=== PATIENT | female | born 1950 | race Caucasian/White ===

== ENCOUNTER → 2017-09-11 | Day surgery (SDC) | payer MEDICARE ==
[2017-09-10 15:28] VITALS: BMI 44.9
--- NOTE | 2017-09-11 12:08 | OP ---
DATE OF PROCEDURE: 09/11/2017 PROCEDURE PERFORMED: Colonoscopy with polypectomy. INDICATION FOR PROCEDURE: Screening for malignant neoplasm of the colon, positive Cologuard. DESCRIPTION OF PROCEDURE: After the risks and benefits were explained to the patient including risks of bleeding, infection, perforation, reaction to anesthesia and/or pain, informed consent was obtained. The patient was then taken to the endoscopy suite where deep sedation was administered via propofol and anesthesia support. The standard colonoscope was then introduced into the rectum with intubation of the entire colon to the cecum achieved. The quality of the prep was poor with large amount of both solid and liquid stool limiting visualization of the colonic mucosa, but adequate enough for the evaluation of large/gross lesions. The patient tolerated the procedure well with no periprocedural complications. The findings of the procedure listed below. Rectal Examination: Normal. Colon: A large amount of both solid and liquid stool was seen throughout the entire colon significantly limiting visualization of the colonic mucosa, more significantly in the right colon than the left. The prep was adequate for the evaluation of large/gross lesions, but inadequate for the evaluation of any fine mucosal lesions or lesions less than 5 mm in size. Of the mucosa seen, normal appearing mucosa was seen at the ileocecal valve, cecum and ascending colon. Two polyps measuring 4-5 mm in size were seen in the transverse colon and completely removed with cold snare polypectomy. They were retrieved and placed in a specimen jar for evaluation. Normal appearing mucosa was seen in the descending colon. Two additional polyps measuring 3-4 mm in size were seen in the sigmoid colon and completely removed with cold snare polypectomy. They were both retrieved and placed in a different specimen jar for evaluation. Normal appearing mucosa was seen in the rectum and normal findings were seen on rectal retroflexion. IMPRESSION: 1. Significant amount of both solid and liquid stool seen throughout the colon making evaluation for fine mucosal lesions impossible. 2. Two 5-6 mm polyps seen in the transverse colon and completely removed with cold snare polypectomy. 3. Two 3-4 mm polyps seen in the sigmoid colon and completely removed with cold snare polypectomy. RECOMMENDATIONS: 1. We will follow up on biopsy results. 2. We would repeat colonoscopy in 3-6 months due to poor visualization of the colonic mucosa on examination today. 3. Recommend follow up in the GI clinic in 2-3 weeks for reevaluation of constipation. 4. We would continue higher fiber diet as recommended in the prior GI clinic visit. MTDD
== END ==
LOC: SDC 08:13
PROVIDERS: ATTEND Internal Medicine
PROC: 0DBN8ZX Excision of Sigmoid Colon, Via Natural or Artificial Opening Endoscopic, Diagnostic (ICD-10-PCS; principal; 2017-09-11)
PROC: 0DBL8ZX Excision of Transverse Colon, Via Natural or Artificial Opening Endoscopic, Diagnostic (ICD-10-PCS; 2017-09-11)
DX: K63.5 Polyp of colon (principal); R19.5 Other fecal abnormalities; Z79.899 Other long term (current) drug therapy; Z79.82 Long term (current) use of aspirin; Z98.890 Other specified postprocedural states; Z98.1 Arthrodesis status; Z15.09 Genetic susceptibility to other malignant neoplasm
CPT/HCPCS: 88305

== ENCOUNTER 2018-01-27 13:49 | Outpatient (CLI) | payer MEDICARE ==
--- NOTE | 2018-01-27 15:12 | RAD ---
FOUR VIEWS LEFT KNEE: Date: 01-27-18 Comparison: None. History: Pain. FINDINGS: There is moderate degenerative change of the medial compartment with joint space narrowing, subchondr al sclerosis and osteophyte formation. There is mild lateral compartment joint space narrowing with a ssociated osteophyte formation of the lateral tibial plateau and lateral femoral condyle. There is mo derate patellofemoral joint space narrowing with subchondral sclerosis and osteophyte formation. No k nee joint effusion, acute fracture, or evidence of dislocation. There is enthesophyte formation at th e insertion of the quadriceps tendon. IMPRESSION: Prominent multi compartment degenerative joint disease. No acute osseous abnormality. POS: [facility]
== END 2018-01-27 13:50 | disposition home or self-care (01) ==
LOC: RAD-FRANK 13:49
PROVIDERS: ATTEND Nurse Practitioner Family
DX: M17.12 Unilateral primary osteoarthritis, left knee (principal)

== ENCOUNTER 2018-03-07 08:23 | Outpatient (CLI) | payer MEDICARE ==
[2018-03-07 09:24] LABS: #Basophils 0.1 thou/uL (0.0-0.2); #Eosinphils 0.1 thou/uL (0.0-0.7); #Lymphocytes 3.3 thou/uL (1.20-3.40); #Monocytes 0.7 thou/uL (0.11-0.59); #Neutrophils 5.5 thou/uL (1.40-6.50); %Basophils 1.2 % (0.0-1.0); %Eosinophils 1.4 % (0.0-10.0); %Lymphocytes 33.8 % (21.0-51.0); %Monocytes 7.1 % (0.0-10.0); %Neutrophils 56.6 % (42.0-75.0); Hemoglobin 15.2 g/dL (12.0-16.0); Mean Corpuscular HGB CONC 33.7 g/dL (32.0-36.0); Mean Corpuscular Hemoglobin 34.1 pg (27.0-31.0); Mean Platelet Volume 6.7 fL (7.4-10.4); Platelet Count 371 thou/uL (130-400); RBC Distribution Width 11.5 % (11.5-14.5); Red Blood Cell (RBC) Count 4.46 mill/uL (4.20-5.40); White Blood Cell (WBC) Count 9.7 thou/uL (4.8-10.8)
[2018-03-07 09:25] LABS: Bilirubin Negative (Negative); Blood, Urine Negative (Negative); Clarity CLOUDY (Clear); Glucose, Urine (Dipstick) Negative (Negative); Leukocyte Moderate (Negative); Nitrite Negative (Negative); Protein, Urine (Dipstick) Negative (Neg-Trace); Specific Gravity, Urine 1.022 (1.002-1.036)
[2018-03-07 09:27] LABS: Pathc Cast-AUWi Flag 0.87 (0-2.49)
[2018-03-07 09:33] LABS: Prothrombin Time 12.9 SEC (12.0-14.7)
[2018-03-07 09:40] LABS: Bacteria/HPF 1+ HPF (None Seen); Hyaline Casts/LPF 0-3 HYALINE CAST LPF (0-3 Hyaline); RBC/HPF 0-3 HPF (0-3)
[2018-03-07 09:42] LABS: Anion Gap 14 mmol/L (10-20); BUN (Urea Nitrogen) 16 mg/dL (9.8-20.1); Calc. Creatinine Clearance 0 mL/min (70-130); Carbon Dioxide 27 mmol/L (23-31); Chloride 102 mmol/L (98-107); Estimated GFR-MDRD 72; Glucose 98 mg/dL (80-115); Potassium 3.7 mmol/L (3.5-5.1); Sodium 139 mmol/L (136-145)
--- NOTE | 2018-03-07 10:08 | RAD ---
CHEST 2 VIEWS: HISTORY: Preop. COMPARISON: None. FINDINGS: Lungs are clear. No pneumothorax or effusion. Cardiac silhouette and mediastinal contours within no rmal limits. No acute osseous abnormality. Incomplete evaluation of the lumbar fusion hardware. IMPRESSION: No acute intrathoracic abnormality. POS: [facility]
--- NOTE | 2018-03-16 14:01 | EKG ---
Test Reason : Blood Pressure : / mmHG Vent. Rate : 047 BPM Atrial Rate : 047 BPM P-R Int : 166 ms QRS Dur : 088 ms QT Int : 470 ms P-R-T Axes : -03 050 013 degrees QTc Int : 415 ms Marked sinus bradycardia with Premature atrial complexes Low voltage QRS Cannot rule out Anterior infarct (cited on or before 01-JUN-2016) Abnormal ECG When compared with ECG of 01-JUN-2016 13:54, Premature atrial complexes are now Present Confirmed by GERBER TOLBERT (2) on 03/16/2018 2:01:23 PM Referred By: PINEDA Confirmed By:GERBER TOLBERT
== END 2018-03-07 08:24 | disposition home or self-care (01) ==
LOC: LABBT 08:23
PROVIDERS: ATTEND Orthopaedic Surgery
DX: Z01.818 Encounter for other preprocedural examination (principal); M17.12 Unilateral primary osteoarthritis, left knee
CPT/HCPCS: 71046; 80048; 81001; 85025; 85610; 86850; 86900; 86901; 87081; 93005; 93010

== ENCOUNTER 2018-03-11 05:31 | Inpatient (IN) | payer MEDICARE ==
[2018-02-27 13:22] VITALS: BMI 42.3
[2018-03-11] MEDS ORDERED: CEFAZOLIN/Water 2 GM/20 ML SYRINGE ONE (05:57)
[2018-03-11] MEDS ORDERED: Sodium Chloride 0.9% 100 ML ONE (05:57)
[2018-03-11] MEDS ORDERED: Vancomycin HCl 1.5 GM in Sodium Chloride 0.9% 250 ML 300 ML IVPB SCH (06:00)
[2018-03-11] MEDS ORDERED: Fentanyl 100 MCG/2 ML VIAL ONE ×2 (06:23→08:50)
[2018-03-11] MEDS ORDERED: Midazolam HCl 2 mg/2 ml Vial ONE (06:23)
[2018-03-11] MEDS ORDERED: Promethazine HCl 25 MG/ML VIAL IM PRN ×3 (06:57→08:47)
[2018-03-11] MEDS ORDERED: traMADol HCl 50 MG TAB PO PRN ×3 (06:57→07:07)
[2018-03-11] MEDS ORDERED: Acetaminophen 325 MG TAB PO PRN (06:57)
[2018-03-11] MEDS ORDERED: Zolpidem Tartrate 5 MG TAB PO PRN ×2 (06:57→07:07)
[2018-03-11] MEDS ORDERED: HYDROcodone/Acetaminophen 10/325 mg Tablet PO PRN (06:57)
[2018-03-11] MEDS ORDERED: diphenhydrAMINE 25 MG CAP PO PRN (06:57)
[2018-03-11] MEDS ORDERED: Fentanyl 100 MCG/2 ML VIAL SLOW IVP PRN ×2 (06:57)
[2018-03-11] MEDS ORDERED: Ondansetron HCl/PF 4 MG/2 ML Vial IVP PRN ×3 (06:57→08:47)
[2018-03-11] MEDS ORDERED: Nitroglycerin 0.4 MG TAB (25 Tab Bottle) SL PRN (06:59)
[2018-03-11] MEDS ORDERED: Ropivacaine HCl/PF 250 ML in Premix Bag 1 BAG NERVE BLCK SCH (07:07)
[2018-03-11] MEDS ORDERED: Ketorolac Tromethamine 30 MG/ML VIAL IVP PRN (07:07)
[2018-03-11] MEDS ORDERED: Fentanyl 100 MCG/2 ML VIAL IV PRN (07:08)
[2018-03-11] MEDS ORDERED: HYDROcodone/Acetaminophen 7.5/325 mg Tablet PO PRN ×2 (07:09)
[2018-03-11] MEDS ORDERED: Promethazine HCl 25 MG/ML VIAL SLOW IVP PRN (08:47)
[2018-03-11] MEDS ORDERED: Acetaminophen 1,000 MG in Premix Bag 1 BAG IVPB SCH (09:30)
[2018-03-11] MEDS: HYDROcodone/Acetaminophen 10/325 mg Tablet PO PRN ×2 (11:21→16:54)
[2018-03-11] MEDS: Sodium Chloride 0.9% 1,000 ML IV SCH ×2 (11:27→15:48)
[2018-03-11] MEDS: Aspirin 81 mg Enteric Coated Tablet PO SCH ×2 (11:39→20:46)
[2018-03-11] MEDS: Torsemide 20 MG TAB PO SCH (11:40)
[2018-03-11] MEDS: Folic Acid 1 MG TAB PO SCH (11:40)
[2018-03-11] MEDS: Ferrous Gluconate 324 MG TAB PO SCH ×2 (11:40→20:46)
[2018-03-11] MEDS: Spironolactone 25 MG TAB PO SCH ×2 (11:40→20:45)
[2018-03-11] MEDS: Atorvastatin Calcium 40 MG TAB PO SCH (11:40)
[2018-03-11] MEDS: Senokot S 8.6-50 MG TAB PO SCH ×2 (11:40→20:51)
[2018-03-11] MEDS: Multivitamin W/ Minerals 1 TAB PO SCH (11:40)
[2018-03-11] MEDS ORDERED: Bupivacaine 0.25% HCL 30 ML VIAL ONE (12:32)
[2018-03-11] MEDS ORDERED: Ropivacaine 0.5% HCl/PF (150 MG/30 ML VIAL) ONE (12:33)
--- NOTE | 2018-03-11 12:55 | OP ---
DATE OF PROCEDURE: 03/11/2018 PREOPERATIVE DIAGNOSIS: End-stage tricompartmental osteoarthritis, left knee. POSTOPERATIVE DIAGNOSIS: End-stage tricompartmental osteoarthritis, left knee. OPERATIVE PROCEDURE: Cemented cruciate-sparing computer-assisted navigated left total knee arthropla stjessica. SURGEON: Jay Hope M.D. BURNER TECHNICIAN: Martell Alex PA-C. ANESTHESIA: General via laryngeal mask airway augmented with indwelling adductor canal block with a single shot sciatic block. COMPONENTS USED: [employer] Triathlon primary cemented, size 4 cruciate-sparing femoral com ponent with a cemented primary size 3 Triathlon tibial baseplate with a 9 mm polyethylene fixed beari ng insert and A29 patellar button. TOURNIQUET TIME: 54 minutes. ESTIMATED BLOOD LOSS: Less than 100. INPUT: 800 mL crystalloid. URINE OUTPUT: Scant. DRAINS: None. SPECIMENS: None. COMPLICATIONS: None. COUNTS: Correct. INDICATIONS FOR SURGERY: Marianela is a 68-year-old white female who has had progressive left knee pain amplified with standing and walking for the last 10-12 years. She has failed conservative management and elected to proceed with total knee arthroplasty as definitive treatment of her pain. PROCEDURE IN DETAIL: After informed consent was obtained in the preoperative holding area. The polo ent was taken to the operative suite where general anesthesia was induced. Once adequate level of ge neral anesthesia was obtained, the patient was positioned and a well-padded tourniquet was placed lebron und the left proximal thigh. The left lower extremity was then prepped and draped in the usual steri le fashion. Prior to exsanguination, a time out was called and all members of the surgical team agre ed upon site, surgeon, and patient. The extremity was then exsanguinated and the tourniquet was rais ed. A midline longitudinal incision was then made directly over the patella extending two fingerbrea dths above the superior pole of the patella and two fingerbreadths inferior to the inferior patellar pole of the patella. Deeper subcutaneous layers were dissected sharply and local bleeding was contro lled with Bovie electrocautery. A quad tendon longitudinal split was then made sharply and a median parapatellar arthrotomy was carried out both sharp and with Bovie electrocautery, carried down to one fingerbreadth medial to the tibial tubercle. The knee was then placed into flexion and the patella was everted nicely, and a copious fat pad ectomy was performed allowing for greater exposure of the t ibia. The computer-assisted distal femoral fiducial was then placed and pinned firmly, and the dista l femoral cutting guide was pinned firmly into place. The oscillating saw was then used to remove th e appropriate amount of bone. The 4-in-1 cutting block was then placed on the distal femur and the o scillating saw was used to remove the appropriate amount of bone off of the anterior, posterior, and chamfer cuts. After completion of bone cuts, the anterior cruciate ligament was resected sharply and the posterior cruciate ligament retractor was placed and the tibia was subluxed for better exposure. Partial meniscectomies were carried out, and the tibial computer-assisted fiducial was pinned, and the cutting guide was placed. Oscillating saw was then used to remove the bone with Hohmann retracto rs used to take care and protect the collateral ligaments. After the tibial resection was performed, a laminar [employer] school combination teacher was placed in between the freshened bone cuts. The knee placed at 90 degrees and further bilateral meniscectomies were carried out, and the curved osteotome and curettage was used t o remove any excess bone spurs in the posterior compartment. The trial femoral component, tibial bas eplate were placed with the appropriate polyethylene trial insert with an appropriate polyethylene sp acer and patellar button. The knee was taken through full range of motion with flexion and extension from 0-90 degrees and patellar broach squarely in the trochlea without any squinting or subluxation noted. The knee was also stable to varus and valgus stressing at 0, 15, 45, and 90 degrees of flexi on. The drawer was negative. All trial components were then removed and the keel punch was used to p rovide the appropriate defect in the tibia with a mallet. The freshened bone cuts were copiously irr igated with pulsatile lavage of about 1-1/2 liters to remove all excess debris. The freshened bone c uts were then dried and with suction and lap sponge. The knee was placed in flexion and retractors w ere placed to provide access to all bone cuts. Tobramycin impregnated methyl methacrylate cement was then placed on the freshened bone cuts and implants which were malleted firmly into place. Curettag e and Reardan elevators were used to remove any excess bone cement. The knee was placed into full exte nsion and the patellar button was placed under compression, and the cement was allowed to cure. Once completed, the components were again taken through full range of motion and copious irrigation of th e knee was carried out with another liter of normal saline. All components were inspected fully with full range of motion and varus and valgus stressing. There was no laxity noted and full extension wa s observed clinically. Primary closure was accomplished with #2 interrupted Vicryl stitch of the art hrotomy defect. This was oversewn with a #2 running Quill barbed stitch. The subcutaneous layer was then closed with a running 0 barbed Monocryl stitch and skin closure accomplished with a running sub cuticular 3-0 Monocryl barbed Quill stitch and augmented with cement on the skin. Tourniquet was low ered. Good spontaneous return of distal pulses was noted clinically and a sterile dressing was appli ed to the incision. The procedure was terminated without any complications. The patient was awakene d in the operative suite and taken to the recovery room in stable condition.
--- NOTE | 2018-03-11 13:02 | RAD ---
LEFT KNEE TWO VIEWS: History: Arthritis. Left knee replacement. FINDINGS: Total knee prosthesis in place. No perihardware lucency. Intracapsular and soft tissue gas. IMPRESSION: Left knee prosthesis is in good radiographic position. POS: [facility]
[2018-03-11] MEDS ORDERED: PROPOFOL 200 MG/20 ML VIAL ONE (13:23)
[2018-03-11] MEDS ORDERED: Ondansetron HCl/PF 4 MG/2 ML Vial ONE (13:23)
[2018-03-11] MEDS ORDERED: Ketorolac Tromethamine 30 MG/ML VIAL ONE (13:23)
[2018-03-11] MEDS: CEFAZOLIN/Water 2 GM/20 ML SYRINGE SLOW IVP SCH ×2 (14:18→21:13)
[2018-03-11] MEDS: Ketorolac Tromethamine 30 MG/ML VIAL IVP SCH ×2 (14:21→21:05)
[2018-03-11] MEDS ORDERED: Sodium Chloride 0.9% 1,000 ML IV SCH (18:30)
[2018-03-12] MEDS: Ketorolac Tromethamine 30 MG/ML VIAL IVP SCH ×3 (05:20→21:13)
[2018-03-12] MEDS: Levothyroxine Sodium 125 MCG TAB PO SCH (05:22)
[2018-03-12 05:31] LABS: Hemoglobin 12.9 g/dL (12.0-16.0); Mean Corpuscular HGB CONC 32.3 g/dL (32.0-36.0); Mean Corpuscular Hemoglobin 33.2 pg (27.0-31.0); Mean Platelet Volume 6.5 fL (7.4-10.4); Platelet Count 288 thou/uL (130-400); RBC Distribution Width 11.5 % (11.5-14.5); Red Blood Cell (RBC) Count 3.89 mill/uL (4.20-5.40)
[2018-03-12] MEDS: Sodium Chloride 0.9% 1,000 ML IV SCH ×2 (05:31→20:24)
[2018-03-12] MEDS: Atorvastatin Calcium 40 MG TAB PO SCH (09:18)
[2018-03-12] MEDS: Aspirin 81 mg Enteric Coated Tablet PO SCH ×2 (09:18→20:23)
[2018-03-12] MEDS: Senokot S 8.6-50 MG TAB PO SCH ×2 (09:19→20:22)
[2018-03-12] MEDS: Multivitamin W/ Minerals 1 TAB PO SCH (09:19)
[2018-03-12] MEDS: Ferrous Gluconate 324 MG TAB PO SCH ×2 (09:19→20:23)
[2018-03-12] MEDS: Folic Acid 1 MG TAB PO SCH (09:20)
[2018-03-12] MEDS: Spironolactone 25 MG TAB PO SCH ×2 (09:20→20:22)
[2018-03-12] MEDS: HYDROcodone/Acetaminophen 10/325 mg Tablet PO PRN (09:38)
[2018-03-12] MEDS: Torsemide 20 MG TAB PO SCH (10:44)
[2018-03-13] MEDS: Sodium Chloride 0.9% 1,000 ML IV SCH ×2 (01:04→11:15)
[2018-03-13 05:00] LABS: Hemoglobin 12.1 g/dL (12.0-16.0); Mean Corpuscular Hemoglobin 34.7 pg (27.0-31.0); Mean Platelet Volume 6.6 fL (7.4-10.4); Platelet Count 250 thou/uL (130-400); RBC Distribution Width 11.7 % (11.5-14.5); Red Blood Cell (RBC) Count 3.48 mill/uL (4.20-5.40); White Blood Cell (WBC) Count 9.6 thou/uL (4.8-10.8)
[2018-03-13] MEDS: Levothyroxine Sodium 125 MCG TAB PO SCH (05:05)
[2018-03-13] MEDS: Ketorolac Tromethamine 30 MG/ML VIAL IVP SCH (05:05)
--- NOTE | 2018-03-13 08:01 | PRG ---
DATE OF SERVICE: 03/12/2018 SUBJECTIVE: Ms. Bear is a 68-year-old female who is postop day #1 from left total knee arthroplasty . She is comfortable, doing very well, has no complaints. OBJECTIVE: VITAL SIGNS: Temperature is 97.7, pulse 60, respiratory rate 16, O2 saturation on room air is 95%, b lood pressure is 105/67. GENERAL: She is alert and oriented to person, place, time, and situation. NEUROLOGICAL: Nonfocal. EXTREMITIES: Visual inspection of left lower extremity demonstrates her to have a dense block, but s he has a little bit of trace dorsiflexion. No strikethrough at the incision. IMPRESSION: A 68-year-old female, who is postop day #1 from left total knee arthroplasty, doing well . PLAN: Continue current care and discharge to home tomorrow.
[2018-03-13] MEDS: Senokot S 8.6-50 MG TAB PO SCH (08:54)
[2018-03-13] MEDS: Atorvastatin Calcium 40 MG TAB PO SCH (08:54)
[2018-03-13] MEDS: Spironolactone 25 MG TAB PO SCH (08:54)
[2018-03-13] MEDS: Multivitamin W/ Minerals 1 TAB PO SCH (08:54)
[2018-03-13] MEDS: Aspirin 81 mg Enteric Coated Tablet PO SCH (08:54)
[2018-03-13] MEDS: Folic Acid 1 MG TAB PO SCH (08:54)
[2018-03-13] MEDS: Ferrous Gluconate 324 MG TAB PO SCH (08:54)
[2018-03-13 09:11] VITALS: BP 127/81; TEMP 97.9
[2018-03-13] MEDS: Torsemide 20 MG TAB PO SCH (13:30)
== END 2018-03-13 12:30 | disposition home or self-care (01) | DRG 470 ==
LOC: SDC 05:31 → SURG B 08:45
PROVIDERS: ADMIT Orthopaedic Surgery; ATTEND Orthopaedic Surgery
PROC: 0SRD0J9 Replacement of Left Knee Joint with Synthetic Substitute, Cemented, Open Approach (ICD-10-PCS; principal; 2018-03-11)
DX: M17.12 Unilateral primary osteoarthritis, left knee (principal)
CPT/HCPCS: 36415; 85027; 96374; C1713; C1776; G8978-GP-CJ; G8979-GP-CI; J0131; J1885; J2250; J2405; J2704; J2795; J3010; J3370; J7050; S0020

== ENCOUNTER 2018-04-02 13:12 | Outpatient (CLI) | payer MEDICARE | END 2018-04-02 13:13 | disposition home or self-care (01) | LOC: BICMAMMO 13:12 | PROVIDERS: ATTEND Nurse Practitioner Family | DX: Z12.31 Encounter for screening mammogram for malignant neoplasm of breast (principal) | CPT/HCPCS: 77063; 77067 ==

== ENCOUNTER 2018-06-17 11:45 | Outpatient (CLI) | payer MEDICARE ==
--- NOTE | 2018-06-17 13:58 | CT ---
CT PELVIS PERFORMED WITHOUT CONTRAST ENHANCEMENT: HISTORY: The patient fell in February. Complaining of numbness. Pain in the right side of the pelvis and right h ip, down to the right knee. FINDINGS: Postoperative changes of the lower lumbar spine are partially visualized on this examination. There are arthritic changes noted. There are some mild arthritic changes of the symphysis and both SI joints. I do not see any signs of any pelvic fracture. Specifically, I do not see any signs of any pubic rami fractures or any type o f old or new sacral fracture. The visualized intrapelvic contents appear unremarkable. There is a fat-containing paraumbilical her dahlia present. The uterus is somewhat deviated off to the right. Fairly minimal arthritic changes of both hips are seen. There are some enthesopathy changes of both hamstring tendon origins. IMPRESSION: No evidence of fracture of the bony pelvic ring. Other incidental findings as noted above. POS: [facility]
== END 2018-06-17 11:46 | disposition home or self-care (01) ==
LOC: CT 11:45
PROVIDERS: ATTEND Neurological Surgery
DX: S32.9XXA Fracture of unspecified parts of lumbosacral spine and pelvis, initial encounter for closed fracture (principal)
CPT/HCPCS: 72192

== ENCOUNTER 2019-02-20 12:57 | Outpatient (CLI) | payer MEDICARE ==
--- NOTE | 2019-02-20 14:49 | MRI ---
MRI BRAIN WITH AND WITHOUT CONTRAST: INDICATION: Memory loss. Mild cognitive impairment. FINDINGS: Mild cortical volume loss. Ventricles have normal size and position. Mild chronic ischemic white ma tter change seen in both cerebral hemispheres. No evidence of restricted diffusion. No mass or edema. No abnormal enhancement identified. Intracranial internal carotid arteries, cerebral arteries, and basilar artery show expected flow void s. Paranasal sinuses appear clear. IMPRESSION: Mild chronic ischemic white matter change. No acute process. POS: [facility]
== END 2019-02-20 12:58 | disposition home or self-care (01) ==
LOC: SCSMRI 12:57
PROVIDERS: ATTEND Neurological Surgery
DX: G31.84 Mild cognitive impairment of uncertain or unknown etiology (principal)
CPT/HCPCS: 70553

== ENCOUNTER 2019-04-03 10:52 | Outpatient (CLI) | payer MEDICARE ==
--- NOTE | 2019-04-07 06:46 | MMO ---
Bilateral MAMMO Bilat Screen [facility]. CLINICAL HISTORY: Patient is 69 years old and is seen for screening. The patient has no family history of breast cancer. The patient has no personal history of cancer. The patient has a history of left Stereotatic Biopsy - benign. VIEWS: The views performed were: bilateral craniocaudal; bilateral craniocaudal with tomosynthesis; and bilateral mediolateral oblique with tomosynthesis. FILMS COMPARED: The present examination has been compared to prior imaging studies performed at [facility] on 02/24/2015, 02/28/2016, 02/27/2017 and 04/02/2018. MAMMOGRAM FINDINGS: There are scattered fibroglandular densities. Finding 1: There are benign appearing calcifications seen in both breasts. Finding 2: There is a stable biopsy clip seen in the left breast. There are no suspicious masses, suspicious calcifications, or new areas of architectural distortion. IMPRESSION: THERE IS NO MAMMOGRAPHIC EVIDENCE OF MALIGNANCY. A ROUTINE FOLLOW-UP MAMMOGRAM IN 1 YEAR IS RECOMMENDED. THE RESULTS OF THIS EXAM WERE SENT TO THE PATIENT. ACR BI-RADS Category 2 - Benign finding MAMMOGRAPHY NOTE: 1. A negative mammogram report should not delay a biopsy if a dominant of clinically suspicious mass is present. 2. Approximately 10% to 15% of breast cancers are not detected by mammography. 3. Adenosis and dense breasts may obscure an underlying neoplasm. Reported by: JOSE PRINCE MD Electonically Signed: [id number]
== END 2019-04-03 10:53 | disposition home or self-care (01) ==
LOC: BICMAMMO 10:52
PROVIDERS: ATTEND Nurse Practitioner Family
DX: Z12.31 Encounter for screening mammogram for malignant neoplasm of breast (principal); Z91.89 Other specified personal risk factors, not elsewhere classified
CPT/HCPCS: 77063; 77067